=== PATIENT | female | born 1935 | race Caucasian/White ===

== ENCOUNTER 2021-05-03 09:10 | Emergency (ER) | payer MEDICARE | END 2021-05-03 12:16 | disposition home or self-care (01) | LOC: CSHERS 09:10 | DX: K59.00 Constipation, unspecified (principal); E78.5 Hyperlipidemia, unspecified; I48.91 Unspecified atrial fibrillation; I10 Essential (primary) hypertension; E11.9 Type 2 diabetes mellitus without complications | CPT/HCPCS: 99283 ==

== ENCOUNTER 2022-07-19 08:43 | Outpatient (CLI) | payer MEDICARE | END 2022-07-19 08:44 | disposition home or self-care (01) | LOC: CSHCP 08:43 | PROVIDERS: ATTEND Internal Medicine Critical Care Medicine | DX: R06.00 Dyspnea, unspecified (principal); R94.2 Abnormal results of pulmonary function studies | CPT/HCPCS: 94010; 94618; 94726; 94729 ==

== ENCOUNTER 2023-02-07 13:55 | Outpatient (CLI) | payer MEDICARE | END 2023-02-07 13:56 | disposition home or self-care (01) | LOC: CSHCP 13:55 | PROVIDERS: ATTEND Internal Medicine Critical Care Medicine | DX: J84.10 Pulmonary fibrosis, unspecified (principal); J98.4 Other disorders of lung | CPT/HCPCS: 94010; 94726; 94729; 94760 ==

== ENCOUNTER 2023-04-24 10:36 | Outpatient (CLI) | payer MEDICARE | END 2023-04-24 10:37 | disposition home or self-care (01) | LOC: CSHMRI 10:36 | PROVIDERS: ATTEND Specialist | DX: M47.26 Other spondylosis with radiculopathy, lumbar region (principal); M51.16 Intervertebral disc disorders with radiculopathy, lumbar region; M25.78 Osteophyte, vertebrae | CPT/HCPCS: 72148 ==